=== PATIENT | male | born 1930 | race Caucasian/White ===

== ENCOUNTER 2017-04-02 16:27 | Emergency (ER) | payer OTHER, BC ==
[~2017-04-02] VITALS: Ht 182.9 cm; Wt 79.6 kg
[~2017-04-02 16:27] MED LIST: ASCORBIC ACID100 MG PO; ASPIRIN325 MG PO; ATENOLOL100 M1 PO; CALTRATE PLUS1 EACH PO; CENTRUM SILVER1 EAC3 PO; CENTRUM SILVER1 EACH PO; COREG6.25 M1 PO; ELIQUIS2.5 MG PO; EXELON3 MG PO; FISH OIL 1,0001 EAC7 PO; FISH OIL PO; FISH OIL300 MG PO; FOSAMAX35 MG PO; LO-DOSE ASPIRIN81 M2 PO; NAMENDA XR28 MG PO; NAMENDA10 MG PO; NIFEDICAL XL30 MG PO; PLAVIX75 MG PO; RIVASTIGMINE3 MG PO; SIMVASTATIN40 MG PO; TENORMIN100 M1 PO; VITAMIN C PO; VITAMIN C500 M5 PO; ZETIA10 MG PO; ZOCOR40 MG PO
[2017-04-02 19:06] VITALS: BP 166/84
== END 2017-04-02 19:08 | disposition home or self-care (01) ==
LOC: EME 16:27
DX: S20.211A Contusion of right front wall of thorax, initial encounter (principal); V49.50XA Passenger injured in collision with unspecified motor vehicles in traffic accident, initial encounter; W22.10XA Striking against or struck by unspecified automobile airbag, initial encounter; Y92.410 Unspecified street and highway as the place of occurrence of the external cause; R91.8 Other nonspecific abnormal finding of lung field; I45.10 Unspecified right bundle-branch block; I10 Essential (primary) hypertension; E78.5 Hyperlipidemia, unspecified; Z79.01 Long term (current) use of anticoagulants; Z79.82 Long term (current) use of aspirin
CPT/HCPCS: 71020; 93005; 99281; 99284

== ENCOUNTER 2017-12-15 11:02 | Emergency (ER) | payer OTHER, BC ==
[~2017-12-15] VITALS: Ht 182.9 cm; Wt 73.1 kg
[2017-12-15 13:53] VITALS: BP 107/76
== END 2017-12-15 13:54 | disposition home or self-care (01) ==
LOC: EME 11:02
DX: M70.52 Other bursitis of knee, left knee (principal); E78.5 Hyperlipidemia, unspecified; I10 Essential (primary) hypertension; F03.90 Unspecified dementia, unspecified severity, without behavioral disturbance, psychotic disturbance, mood disturbance, and anxiety; I25.2 Old myocardial infarction; Z79.82 Long term (current) use of aspirin; Z88.8 Allergy status to other drugs, medicaments and biological substances
CPT/HCPCS: 73564; 99281; 99284